=== PATIENT | female | born 1965 | race Caucasian/White ===

== ENCOUNTER 2021-02-28 09:38 | Emergency (ER) | payer OTHER ==
[~2021-02-28] VITALS: Ht 162.6 cm; Wt 65.8 kg
[2021-02-28 10:10] LABS: MCH 30.7 pg (26.0-34.0); WBC 5.9 thou/uL (4.0-11.0)
[2021-02-28 10:12] LABS: ABSOLUTE NEUTROPHILS 4.1 thou/uL (1.4-8.2); BASOPHILS 0.7 % (0.0-2.0); EOSINOPHILS 2.9 % (0.0-3.0); HEMATOCRIT 39.7 % (37.0-47.0); HEMOGLOBIN 13.5 gm/dL (12.0-15.0); LYMPHOCYTES 23.1 % (24.0-44.0); MCHC 33.9 g/dL (28.0-37.0); MCV 90.6 fL (80.0-100.0); MONOCYTES 4.4 % (1.0-8.0); PLATELET COUNT 259 thou/uL (150-400); POLYS 68.9 % (36.0-66.0); RBC 4.39 mil/uL (4.20-5.00); RDW 13.2 % (10.5-14.5)
[2021-02-28 10:18] LABS: CALCIUM 9.2 mg/dL (8.5-10.1); POTASSIUM 3.5 mmol/L (3.5-5.1)
[2021-02-28 10:27] LABS: ALBUMIN 4.1 g/dL (3.4-5.0); TOTAL BILIRUBIN 1.8 mg/dL (0.2-1.0); TOTAL PROTEIN 7.4 g/dL (6.4-8.2)
[2021-02-28] MEDS ORDERED: PROAIR HFA8.5 GM INH (12:20)
[2021-02-28 12:25] VITALS: BP 130/67
--- NOTE | 2021-03-02 07:58 | EKG ---
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
== END 2021-02-28 12:36 | disposition home or self-care (01) ==
LOC: ER 09:38
PROVIDERS: Emergency Medicine
DX: R06.00 Dyspnea, unspecified (principal); Z20.822 Contact with and (suspected) exposure to COVID-19; Z88.2 Allergy status to sulfonamides; Z88.1 Allergy status to other antibiotic agents